=== PATIENT | male | born 1965 | race Caucasian/White ===

== ENCOUNTER 2019-11-05 09:42 | Emergency (ER) | payer OTHER ==
[2019-11-05 09:55] VITALS: BP 132/97; PULSE 89; TEMP 98.5; BMI 25.8
--- NOTE | 2019-11-05 10:03 | PDOC ---
History of Present Illness - General Chief Complaint: Psychiatric Stated Complaint: Psychiatric Time Seen by Provider: 11/05/19 09:58 History Source: Patient Exam Limitations: No Limitations - History of Present Illness Initial Comments: 11/05/19 09:59 CHIEF COMPLAINT: Anxiety HISTORY OF PRESENT ILLNESS: This is a 54-year-old male with anxiety/panic disorder, previously was seeing a psychiatrist named Dr. Mariscal, unable to continue 2/2 insurance issues. Patient is recently unemplyed and homeless. Takes Effexor 225mg (150mg + 75mg), Klonopin 1mg bid. Took last of Klonopin supply today. Requests short-term rx as plans to see psych at [facility]. No SI/HI/AH/ VH. PCP: Melania Aviles REVIEW OF SYSTEMS: GENERAL/CONSTITUTIONAL: No fever or chills. No weakness. No weight change. HEAD, EYES, EARS, NOSE AND THROAT: No change in vision. No ear pain or discharge. No sore throat. CARDIOVASCULAR: No chest pain or palpitations. RESPIRATORY: No cough, wheezing, or shortness of breath. GASTROINTESTINAL: No nausea, vomiting, diarrhea or constipation. GENITOURINARY: No dysuria, frequency, or change in urination. MUSCULOSKELETAL: Chronic low back pain, getting outpatient XR today ordered by PCP. SKIN: No rash or easy bruising. NEUROLOGIC: No headache, vertigo, loss of consciousness, or loss of sensation. PSYCHIATRIC: See HPI. ENDOCRINE: No increased thirst. No abnormal weight change. HEMATOLOGIC/LYMPHATIC: No anemia, easy bleeding, or history of blood clots. ALLERGIC/IMMUNOLOGIC: No hives or skin allergy. No latex allergy. PHYSICAL EXAM: GENERAL: The patient is awake, alert, and fully oriented, in no acute distress. HEAD: Normal with no signs of trauma. ENT: Pupils equal, round and reactive to light, extraocular movements intact, sclera anicteric, conjunctiva clear. Neck supple. LUNGS: Clear to auscultation bilaterally. Normal excursion. No respiratory distress or use of accessory muscles. CV: RRR, S1/S2, no MRG. Cap refill < 2 sec. ABDOMEN: Soft, non-distended, non-tender. EXTREMITIES: Normal range of motion, no edema. NEUROLOGICAL: Normal speech, normal gait. CN II-XII grossly intact. PSYCH: Anxious affect. SKIN: Warm, dry, normal turgor, no rashes or lesions noted. Past History - Past Medical History Allergies/Adverse Reactions: Allergies Allergy/AdvReac Type Severity Reaction Status Date / Time No Known Allergies Allergy Verified 11/05/19 09:53 Home Medications: Ambulatory Orders Clonazepam [Klonopin] 1 mg PO BID #14 tablet MDD 2 pills 11/05/19 Venlafaxine HCl ER [Effexor Xr -] 1 tab PO DAILY 11/05/19 Psychiatric Problems: Yes (ANXIETY.) - Psycho Social/Smoking Cessation Hx Smoking History: Never smoked Have you smoked in the past 12 months: Yes Number of Cigarettes Smoked Daily: 15 Information on smoking cessation initiated: No Hx Alcohol Use: No Drug/Substance Use Hx: No Substance Use Type: Alcohol *Physical Exam - Vital Signs Last Vital Signs Temp Pulse Resp BP Pulse Ox 98.5 F 89 16 132/97 97 11/05/19 09:53 11/05/19 09:53 11/05/19 09:53 11/05/19 09:53 11/05/19 09:53 Medical Decision Making - Medical Decision Making 11/05/19 11:43 A/P: 54-year-old male with anxiety/panic and access to care issues. No SI. -Klonopin rx for 1 wk -Pt to follow up with [facility] -Return precautions reviewed Discharge - Discharge Information Problems reviewed: Yes Clinical Impression/Diagnosis: Anxiety Condition: Stable Disposition: HOME - Admission No - Additional Discharge Information Prescriptions: Clonazepam [Klonopin] 1 mg PO BID #14 tablet MDD 2 pills - Follow up/Referral Referrals: [facility] [place] [Provider Group] - Patient Discharge Instructions Patient Printed Discharge Instructions: DI for Anxiety -- Adult Additional Instructions: -Continue Effexor as prescribed -You are being given a one-week prescription for Klonopin -You must follow up with psychiatry for [facility] for longer-term therapy -Return here for suicidal or self-harming thoughts or for any other concerning symptoms - Post Discharge Activity
[2019-11-05] MEDS ORDERED: clonazePAM 0.5 MG TABLET PO ONE (10:20)
[2019-11-05] MEDS ORDERED: clonazePAM 0.5 MG TABLET ONE (10:40)
== END 2019-11-05 10:42 | disposition home or self-care (01) ==
LOC: JERFT 09:42
DX: F41.9 Anxiety disorder, unspecified (principal); Z76.0 Encounter for issue of repeat prescription; Z87.891 Personal history of nicotine dependence
CPT/HCPCS: 99281-25

== ENCOUNTER 2024-03-16 18:36 | Emergency (ER) | payer OTHER ==
[2024-03-16 18:41] VITALS: BP 140/87; PULSE 81; RESP 20; TEMP 98.6; BMI 25.8
[2024-03-16] MEDS ORDERED: FAMOTIDINE 20 MG TABLET ONE (22:13)
[2024-03-16] MEDS ORDERED: MAG HYDROX/AL HYDROX/SIMETH 30 ML UNIT-DOSE CUP ONE (22:13)
[2024-03-16 22:18] LABS: BASO % 0.6 % (0-2.0); EOS % 2.6 % (0-4.5); HEMATOCRIT 40.2 % (35.4-49); HEMOGLOBIN 13.6 GM/dL (11.7-16.9); LYMPH % 36.2 % (8-40); MCH 32.5 pg (25.7-33.7); MCHC 33.9 g/dl (32.0-35.9); MEAN PLT VOLUME 8.7 fl (7.5-11.1); MONO % 11.4 % (3.8-10.2); NEUT % 49.2 % (42.8-82.8); PLATELET COUNT 210 10^3/uL (134-434); RBC 4.18 M/mm3 (4.00-5.60); RDW 13.1 % (11.9-15.9)
[2024-03-16] MEDS: FAMOTIDINE 20 MG TABLET PO ONE (22:21)
[2024-03-16] MEDS: SODIUM CHLORIDE 0.9% 500 ML INFUS.BAG IV ONE (22:21)
[2024-03-16] MEDS: MAG HYDROX/AL HYDROX/SIMETH 30 ML UNIT-DOSE CUP PO ONE (22:21)
[2024-03-16 22:41] LABS: POTASSIUM 3.9 mmol/L (3.5-5.1)
[2024-03-16 22:43] LABS: ALBUMIN 3.7 g/dl (3.4-5.0); BLOOD UREA NITROGEN 25.5 mg/dL (7-18)
[2024-03-16 22:46] LABS: CREATININE 1.2 mg/dL (0.55-1.3)
[2024-03-16 22:48] LABS: BILIRUBIN,TOTAL 0.4 mg/dL (0.2-1); TOT PROT 6.9 g/dl (6.4-8.2)
== END 2024-03-16 23:16 | disposition home or self-care (01) ==
LOC: JER 18:36
DX: R10.13 Epigastric pain (principal)
CPT/HCPCS: 36415; 74018-TC-FY; 80053; 83690; 85025; 99284-25